=== PATIENT | male | born 1950 | race Caucasian/White ===

== ENCOUNTER 2017-12-05 06:27 | Emergency (ER) | payer MEDICARE ==
[~2017-12-05] VITALS: Ht 175.3 cm; Wt 77.3 kg
[2017-12-05 07:00] VITALS: BP 131/83
[2017-12-05] MEDS ORDERED: HYDR-3965 PO (07:49)
[2017-12-05] MEDS ORDERED: ONDA8TAB9 PO (07:49)
[2017-12-05] MEDS ORDERED: acetaminophen 325mg tablet PO ONE (07:50)
[2017-12-05] MEDS ORDERED: ketorolac trometh inj. 60 MG/2 ML VIAL IM ONE (07:50)
== END 2017-12-05 08:40 | disposition home or self-care (01) ==
LOC: ER 06:27
DX: M25.561 Pain in right knee (principal)
CPT/HCPCS: 73564; 96372; 99284; J1885

== ENCOUNTER 2018-03-21 00:49 | Emergency (ER) | payer MEDICARE ==
[~2018-03-21] VITALS: Ht 175.3 cm; Wt 79.0 kg
[~2018-03-21 00:49] MED LIST: ONDA8TAB9 PO
[2018-03-21 00:56] VITALS: BP 122/81
[2018-03-21] MEDS ORDERED: TRAM50TA2 PO (01:55)
[2018-03-21] MEDS ORDERED: ketorolac trometh inj. 60 MG/2 ML VIAL IM ONE (01:55)
== END 2018-03-21 02:25 | disposition home or self-care (01) ==
LOC: ER 00:49
DX: M25.462 Effusion, left knee (principal); M25.562 Pain in left knee
CPT/HCPCS: 73564; 96372; 99283; J1885

== ENCOUNTER 2020-04-21 08:51 | Emergency (ER) | payer MEDICARE ==
[~2020-04-21] VITALS: Ht 175.3 cm; Wt 75.0 kg
[2020-04-21 08:54] VITALS: BP 114/68
[2020-04-21] MEDS ORDERED: ketorolac tromethamine 15mg/ml inj. IM ONE (10:00)
[2020-04-21] MEDS ORDERED: IBUP-1984 PO (10:28)
== END 2020-04-21 10:49 | disposition home or self-care (01) ==
LOC: ER 08:52
DX: M25.461 Effusion, right knee (principal); M25.561 Pain in right knee; M19.90 Unspecified osteoarthritis, unspecified site; Z79.899 Other long term (current) drug therapy; W22.09XA Striking against other stationary object, initial encounter; Y93.89 Activity, other specified; Y92.89 Other specified places as the place of occurrence of the external cause; Y99.8 Other external cause status
CPT/HCPCS: 29505; 73564; 96372; 99283; J1885

== ENCOUNTER 2023-03-25 10:38 | Emergency (ER) | payer MEDICARE ==
[~2023-03-25] VITALS: Ht 175.3 cm; Wt 79.5 kg
[2023-03-25 10:38] VITALS: BP 114/85; PULSE 96; RESP 18; TEMP 98; O2SAT 100
[2023-03-25] MEDS ORDERED: methylPREDNISolone sod succ 125mg/2ml vial IM ONE (12:20)
[2023-03-25] MEDS ORDERED: METH4TAB81 PO (12:29)
== END 2023-03-25 23:07 | disposition home or self-care (01) ==
LOC: ER 10:38
DX: M10.9 Gout, unspecified (principal); M79.674 Pain in right toe(s); Z79.899 Other long term (current) drug therapy
CPT/HCPCS: 73660; 96372; 99283; J2930

== ENCOUNTER 2024-08-11 03:19 | Emergency (ER) | payer MEDICARE ==
[~2024-08-11] VITALS: Ht 175.3 cm; Wt 77.3 kg
[~2024-08-11 03:19] MED LIST changes: +METH4TAB81 PO
[2024-08-11 03:23] VITALS: TEMP 98.3
[2024-08-11] MEDS ORDERED: CEPH500C81 PO (03:48)
--- NOTE | 2024-08-11 03:49 | Physician Documentation ---
History of Present Illness ~ Chief Complaint: Knee Pain Stated Complaint: L KNEE PAIN Time Seen by MD: 03:43 Primary Medical Doctor: MIREYA HENRY 74-year-old male presenting for knee pain. He was kneeling doing concrete floor last week shortly after developed increasing pain which has progressively worsened. Pain is worsened with knee extension. He is weight-bearing. He has had no fever. No history of diabetes. Otherwise healthy Tetanus witin 5 years: Yes Medication Reconciliation Allergies: Coded Allergies: No Known Allergies (Unverified , 08/11/24) Scheduled Methylprednisolone (Medrol Dosepak), 0 PO UD Scheduled PRN Ondansetron (Zofran Odt), 8 MG PO QID PRN for nausea/vomiting Past Medical History Past Medical History: No Pertinent History Past Surgical History: no surgical history Alcohol Use: None Drug Use: none Lives with: Family Lives In: Home Review of Systems All Other Systems at this time: Reviewed and Negative Physical Exam Vital Signs: Temperature: 98.3, Source: Temporal, Heart Rate: 92, Respiratory Rate: 16, BP: 123/87, Pulse Oximetry: 96, Weight: 77.270 Oxygen Flow Rate: 0 Physical Exam Well-appearing no distress Left knee intact passive range of motion, discomfort with active extension Tenderness over prepatellar bursa with surrounding erythema. No fluctuance. Weight-bearing intact Progress Results/Orders Results/Orders Vital Signs 08/11/24 08/11/24 03:23 03:36 Temp 98.3 Pulse 95 92 Resp 14 16 B/P (MAP) 142/80 123/87 (99) Pulse Ox 95 96 O2 Flow Rate 0 Medical Decision Making Additional Comment Septic arthritis, prepatellar bursitis, septic bursitis Departure Disposition: HOME / SELF CARE / HOMELESS Impression: Primary Impression: Bursitis Qualified Codes: M70.42 - Prepatellar bursitis, left knee Additional Instructions: Your symptoms are consistent with bursitis which is infected. This should respond quickly to antibiotics and anti-inflammatories. You may take 400 mg of ibuprofen every 6 hours for discomfort Follow up with Orthopedic surgery on the . Return sooner if you develop fever or increasing discomfort or unable to put any weight on the affected joint Referrals: WHITNEY TIJERINA MD Prescriptions Cephalexin (Cephalexin) 500 Mg Capsule 1 CAP PO Q6H for 10 Days, #40 CAP Prov: JARRETT PEACOCK MD 08/11/24 Signature Scribe Signature: na Attestation: JARRETT Engel MD August 11, 2024 03:49
[2024-08-11] MEDS: ibuprofen tablet 400 MG TABLET PO ONE (04:04)
[2024-08-11] MEDS: cephalexin 250mg capsule PO ONE (04:04)
[2024-08-11 04:07] VITALS: BP 138/79; PULSE 87; RESP 16; O2SAT 97
== END 2024-08-11 04:08 | disposition home or self-care (01) ==
LOC: ER 03:20
DX: M70.42 Prepatellar bursitis, left knee (principal)
CPT/HCPCS: 99283

== ENCOUNTER 2025-02-02 08:20 | Emergency (ER) | payer MEDICARE ==
[~2025-02-02] VITALS: Ht 175.3 cm; Wt 81.2 kg
[~2025-02-02 08:20] MED LIST changes: -METH4TAB81 PO
[2025-02-02 08:24] VITALS: BP 138/67; PULSE 98; O2SAT 98
[2025-02-02 09:34] VITALS: RESP 16
[2025-02-02] MEDS: ketorolac trometh 15mg/ml vial 15 MG/ML ML IM ONE (09:34)
[2025-02-02] MEDS: CefTRIAXone 1000mg IM Kit (w/lidocaine diluent) IM ONE (09:34)
--- NOTE | 2025-02-02 09:42 | Physician Documentation ---
History of Present Illness ~ Chief Complaint: Ankle pain Stated Complaint: R FOOT PAIN Time Seen by MD: 09:08 OK to notify your PCP?: Yes Primary Medical Doctor: MIREYA Source: patient Mode of Arrival: POV Exam Limitations: no limitations HPI 74-year-old male with chief complaint right medial ankle pain that started spontaneously two days ago. Pain has gotten progressively worse. He denies any precipitating injury or event. He states the pain is worse when he bends his ankle or weight bears. He believes that he may have gotten bit spider. Has had gout in the past and states that this pain is different from gout as he states when he has had gout it is always painful with light touch but this is not painful with she so with putting socks on. He denies fever, chills, pain in his calf the thigh or groin tetanus immunization is up-to-date. Tetanus witin 5 years: Yes Medication Reconciliation Allergies: Coded Allergies: No Known Allergies (Unverified , 02/02/25) Scheduled PRN Ondansetron (Zofran Odt), 8 MG PO QID PRN for nausea/vomiting Past Medical History Past Medical History: No Pertinent History Past Surgical History: no surgical history Alcohol Use: None Drug Use: none Lives with: Family Lives In: Home Review of Systems All Other Systems at this time: Reviewed and Negative Physical Exam Vital Signs: Temperature: 97.3, Source: Temporal, Heart Rate: 98, Respiratory Rate: 16, BP: 138/67, Pulse Oximetry: 98, Weight: 81.200 Oxygen Flow Rate: 0 Physical Exam General Appearance: Alert, WD/WN. NAD. HEENT: NCAT, PERRL, EOMI. Neck: Supple, trachea midline. Cardiovascular: RRR. No m/r/g. Lungs: CTAB. Breathing unlabored Extremities: Right medial ankle over the malleolus there is an area of erythema that measures about 3 cm in diameter well-defined borders and outside of the this area of erythema the skin is pink or compared to the surrounding tissue in the pinkness measures about 2 cm in diameter surrounding the area of erythema. Areas tender to palpation no induration or fluctuance, no opening in the skin the skin is intact. Active range motion of ankle joint is decreased due to pain . No tenderness over the right calf or foot. Pedal pulses 2+ bilaterally and cap refills at toes less than 2 seconds Neurological: Alert and oriented x4, ambulating favoring his left leg Psychiatric: Affect congruent with mood. Progress Results/Orders Results/Orders Completed Orders - AURORA MERCER Ceftriaxone Im Kit W/Lidocaine (Rocephin (02/02/25 09:25) Ketorolac Trometh 15mg/Ml Vial (Toradol (02/02/25 09:25) Medications Received in ER Medications (Trade) Dose Ordered Sig/Sai Route PRN Reason Start Time Stop Time Status Last Admin Dose Admin (Rocephin 1GM IM kit (w/lidocaine diluent)) 1,000 mg ONCE ONCE IM 02/02/25 09:25 02/02/25 09:26 DC 02/02/25 09:34 1,000 MG (Toradol injection) 15 mg ONCE ONCE IM 02/02/25 09:25 02/02/25 09:26 DC 02/02/25 09:34 15 MG Vital Signs 02/02/25 02/02/25 08:24 09:34 Temp 97.3 Pulse 98 Resp 16 16 B/P (MAP) 138/67 Pulse Ox 98 O2 Flow Rate 0 Medical Decision Making Additional information obtaine: N/A Findings n/a General Diff Dx:Considerations: Include: Other Knee Diff Dx:Considerations: Include: Other Ankle Diff Dx:Considerations: Include: Abrasion, Arthritis, Contusion, DJD, Fracture-metatarsal, Fracture-fibula, Fracture-tarsal, Fracture-tibia, Gout, Hematoma, Laceration, Malunion, Neurovascular injury, Nonunion, Open fracture, Osteomyelitis, Rheumatoid arthritis, Sprain, Septic, Ulcer, Other Foot Diff Dx:Considerations: Include: Other Toe Diff Dx:Considerations: Include: Other (There is no fluctuance or induration areas consistent with cellulitis no evidence for any peripheral vascular issue there was no preceding trauma or event thus imaging was not performed. Considering pain is different from what he has had gout in the past I also considered gout but this is not likely he does not have pain with light touch over the skin.) Departure Time of Disposition: 09:42 Disposition: 01 HOME / SELF CARE / HOMELESS Impression: Primary Impression: Cellulitis of right ankle Condition: Stable Discharge Instructions: Cellulitis, Adult, [id number] Additional Instructions: if redness spreading outside of lines on skin, you develop fever, or increasing pain return to er Referrals: NO PRIMARY CARE PROVIDER (PCP) Prescriptions Hydrocodone Bit/Acetaminophen 5/325 MG ([place] 5/325 MG) 5 Mg/325 Mg Tablet 1 TAB PO TID PRN PRN for pain for 3 Days, #9 TAB dx: ankle pain, cellulitis L03.113 Prov: AURORA MERCER 02/02/25 Ibuprofen (Ibuprofen) 800 Mg Tablet 1 TAB PO Q8H for pain for 10 Days, #30 TAB 0 Refills Prov: AURORA MERCER 02/02/25 Sulfamethoxazole/Trimethoprim (Bactrim Ds Tablet) 800 Mg-160 Mg Tablet 1 TAB PO Q12H for 10 Days, #20 TAB Prov: AURORA MERCER 02/02/25 Cephalexin*Monohydrate* (Keflex*) 500 Mg Capsule 1 CAP PO QID for 10 Days, #40 CAP Prov: AURORA MERCER 02/02/25 Education Educated: Patient Educated regarding: diagnosis, treatment, need for follow up Signature Scribe Signature: x Attestation: AURORA Peck Feb 02, 2025 09:42
[2025-02-02] MEDS ORDERED: HYDR-3965 PO (09:45)
[2025-02-02] MEDS ORDERED: CEPH-585 PO (09:45)
[2025-02-02] MEDS ORDERED: IBUP-1986 PO (09:45)
[2025-02-02] MEDS ORDERED: SULF1TAB49 PO (09:45)
[2025-02-02 09:59] VITALS: TEMP 97.3
== END 2025-02-02 10:00 | disposition home or self-care (01) ==
LOC: ER 08:20
DX: L03.115 Cellulitis of right lower limb (principal)
CPT/HCPCS: 96372; 99284; J0696; J1885

== ENCOUNTER 2025-03-08 08:23 | Emergency (ER) | payer MEDICARE ==
[~2025-03-08] VITALS: Ht 175.3 cm; Wt 82.3 kg
[~2025-03-08 08:23] MED LIST changes: +IBUP-1986 PO
[2025-03-08 08:27] VITALS: BP 114/62; PULSE 97; RESP 16; O2SAT 96
--- NOTE | 2025-03-08 09:11 | Physician Documentation ---
History of Present Illness ~ Chief Complaint: Abscess Stated Complaint: ELBOW SWELLING Time Seen by MD: 09:02 OK to notify your PCP?: Yes Primary Medical Doctor: Heber Source: patient Mode of Arrival: POV Exam Limitations: no limitations HPI Reports having a couple of days of left elbow soreness and then yesterday a large, painful, red, lump appeared to his left elbow. He reports that it is painful especially with extension and flexion. He denies any fever, chills, nausea, vomiting or diarrhea. Denies history of MRSA. Tetanus Within 5 Years: No Medication Reconciliation Allergies: Coded Allergies: No Known Allergies (Unverified , 03/08/25) Scheduled Amox Tr/Potassium Clavulanate (Augmentin 875-125 Tablet), 1 TAB PO Q12H Ibuprofen (Ibuprofen), 1 TAB PO Q8H Scheduled PRN Ondansetron (Zofran Odt), 8 MG PO QID PRN for nausea/vomiting Past Medical History Past Medical History: No Pertinent History Past Surgical History: no surgical history Alcohol Use: None Drug Use: none Lives with: Family Lives In: Home Review of Systems All Other Systems at this time: Reviewed and Negative Physical Exam Vital Signs: RN Vital Signs have been reviewed: Yes, Temperature: 98.1, Source: Temporal, Heart Rate: 97, Respiratory Rate: 16, BP: 114/62, Pulse Oximetry: 96, Weight: 82.300 Oxygen Flow Rate: 0 Pulse Oximetry Reflects: adequate oxygenation Physical Exam General: Alert, no distress. HEENT: No injection, moist mucous membranes. Neck: Full range of motion. Respiratory: No respiratory distress, equal chest rise and fall. Chest: No accessory muscle use. Cardiovascular: Regular rate and rhythm. Gastrointestinal: Nondistended. Extremities: Normal but painful range motion of left elbow. Large erythematous warm versa to the left elbow, no drainage. Neurologic: Oriented x4. Psychiatric: Normal mood and affect. Skin: Normal color, warm and dry. Progress Results/Orders Results/Orders Vital Signs 03/08/25 03/08/25 08:27 09:41 Temp 98.1 98.1 Pulse 97 Resp 16 B/P (MAP) 114/62 Pulse Ox 96 O2 Flow Rate 0 Medical Decision Making Additional information obtaine: old records Findings Physical exam reveals infected olecranon bursitis to the left elbow. No history of MRSA. Vitals are stable. Treated with Augmentin with the 1st dose given in the department the rest sent to the pharmacy. He was given discharge and follow up instructions. Differential Dx:Considerations: Include: Abscess, Bacteremia, Cellulitis, Erysipelas, Gas gangrene, Septicemia Departure Disposition: 01 HOME / SELF CARE / HOMELESS Impression: Primary Impression: Infected olecranon bursa Condition: Stable Discharge Instructions: Elbow Bursitis, [id number] Additional Instructions: Take all antibiotics as prescribed. Follow up with her primary care provider in the next week. Return back here for any new or worsening symptoms. Referrals: NO PRIMARY CARE PROVIDER (PCP) Prescriptions Amox Tr/Potassium Clavulanate (Augmentin 875-125 Tablet) 1 Each Tablet 1 TAB PO Q12H for 14 Days, #28 TAB Prov: DOMINIQUE SHELBY 03/08/25 Education Educated: Patient Educated regarding: diagnosis, treatment, prognosis, need for follow up Additional Comment Medical Screen Exam This patient recieved a medical screening examination. After reviewing the individual's medical complaints with presenting symptoms and performing an appropriate physical examination, it was determined that no immediate life- threatening emergency medical condition is present. This individual is also not a women having contractions. Signature Scribe Signature: . Attestation: Scribed for Dominique Shelby by Dominique Shelby - NICK . 03/08/25 09:25 Parts of this note were created using [employer] voice recognition software pro gram. While efforts were made to correct any mistakes made by this voice recognition software program, nonsensical phrases may remain in this note. In addition, there may be errors and syntax, grammar, content and spelling. DOMINIQUE SHELBY Mar 08, 2025 09:10 LAYO MENDEZ MD Mar 08, 2025 18:26
[2025-03-08] MEDS ORDERED: AMOX-117 PO (09:25)
[2025-03-08] MEDS: amox tr/potassium clavulanate 875/125mg TAB PO ONE (09:34)
[2025-03-08 09:41] VITALS: TEMP 98.1
== END 2025-03-08 09:43 | disposition home or self-care (01) ==
LOC: ER 08:23
DX: M71.122 Other infective bursitis, left elbow (principal); Z79.899 Other long term (current) drug therapy
CPT/HCPCS: 99283